=== PATIENT | female | born 1945 | race African-American/Black ===

== ENCOUNTER 2019-06-07 13:36 | Emergency (ER) | payer MEDICARE, OTHER ==
[~2019-06-07] VITALS: Ht 167.6 cm; Wt 72.6 kg
[2019-06-07] MEDS ORDERED: HYDRALAZINE 2525 MG PO (13:53)
[2019-06-07] MEDS ORDERED: HUMALOG MI100 UNIT/6 SUBQ (13:54)
[2019-06-07] MEDS ORDERED: NOVOLIN 70100 UNIT/5 SUBQ (13:58)
[2019-06-07] MEDS ORDERED: [UNRECOGNIZED DRUG - OTHER] MISCELL ×3 (14:32→14:36)
[2019-06-07] MEDS ORDERED: GLUCOSE TEST S1 EACH MISCELL (14:32)
[2019-06-07 14:48] VITALS: BP 137/68
== END 2019-06-07 14:49 | disposition home or self-care (01) ==
LOC: M.ERS 13:36
DX: E11.9 Type 2 diabetes mellitus without complications (principal); I10 Essential (primary) hypertension; Z76.0 Encounter for issue of repeat prescription